=== PATIENT | female | born 1950 | race Caucasian/White ===

== ENCOUNTER → 2017-01-29 | Outpatient (CLI) | payer MEDICARE, BC ==
[~2017-01-29] MED LIST: ACETAMINOPHEN PO; AMARYL PO; ASPIRIN81 MG PO; DIOVAN160 MG DOB; FISH OIL300 MG PO; HYTRIN10 M1 PO; LANTUS100 U/M1 SUBQ; LASIX20 MG PO; MELOXICAM15 MG PO; MULTI VITAMIN1 EACH PO; PLAVIX PO; SIMVASTATIN80 MG PO; SYNTHROID0.05 MG PO
--- NOTE | ~2017-01-29 | CT17 ---
[facility] A Service of [facility] & [facility] RADIOLOGY TEXT RESULTS PATIENT: FRANK BENAVIDES LOCATION: [facility] : 48 UNIT #: [id number] AGE: [address]: Leo So II, MD SEX: F ORDER DR: [id number] [place], [place] [address] [id number] O MR#: [id number] Acc #: [id number] NAME: FRANK BENAVIDES : 1950 SEX: F STUDY DATE/TIME: 01/29/2017 11:40 UNIT: [facility] ROOM: STUDY DESCRIPTION: CT Angio Head Attending Physician: Leo So II., M.D. Referring Physician: Leo So II., M.D. Ordering Physician: Leo So II., M.D. Primary Care Physician: Peter Gomez M.D. MEDICAL IMAGING REPORT This report is preliminary unless electronic signature is present EXAM CT angiogram of the head HISTORY FINDINGS Please see CT angiogram of the neck for results. Dictated by... Olya Fraire M.D. THIS IS AN ELECTRONICALLY VERIFIED REPORT Olya Fraire M.D. at 01/31/2017 3:21 PM CPR/sierra TD: 01/31/2017 15:01 JOB #: [id number] MEDICAL IMAGING REPORT Page 1 of 1 COPY
--- NOTE | ~2017-01-29 | CT23 ---
[facility] A Service of [facility] RADIOLOGY TEXT RESULTS PATIENT: FRANK BENAVIDES LOCATION: [facility] : 48 UNIT #: [id number] AGE: [address]: Leo So II, MD SEX: F ORDER DR: [id number] [facility] [address] [place], [place] [address] [id number] O MR#: [id number] [facility] #: [id number] NAME: FRANK BENAVIDES : 1950 SEX: F STUDY DATE/TIME: 01/29/2017 11:40 UNIT: [facility] ROOM: STUDY DESCRIPTION: CT Angio Neck Attending Physician: Leo So II., M.D. Referring Physician: Leo So II., M.D. Ordering Physician: Leo So II., M.D. Primary Care Physician: Peter Gomez M.D. MEDICAL IMAGING REPORT This report is preliminary unless electronic signature is present EXAM CT angiogram of the head and neck with contrast dated 01/29/2017 COMPARISON MRA head without contrast dated 11/21/2015, MRA head and neck dated 09/08/2013, CTA head and neck dated 02/10/2013. HISTORY Cerebral aneurysm was diagnosed in 02/09/2013. Followup. TECHNIQUE This CT exam was performed with one or more of the following radiation dose reduction techniques: automatic exposure control, adjustment of mA and/or kV according to patient size, and iterative reconstruction. FINDINGS CT angiogram of the head was obtained with IV contrast in the axial plane. 3 plane reformats of the [place], curved reformats of the major neck arteries were obtained. In a separate workstation 3-D tumbling MIP images of the [place] and surface rendered images were obtained. NECK: Three-vessel aortic arch is seen. Atherosclerotic plaques are noted at the origin of the great vessels. Bilateral common carotid arteries demonstrate calcified plaques at the distal bifurcation with extension into the internal carotid artery on the left side. There is a higher bifurcation on the left when compared to the right. A congenital variant. No hemodynamically flow-limiting significant stenosis in bilateral internal carotid artery bulbs per NASCET criteria. Mild atherosclerotic plaques are noted in the origin of bilateral external carotid arteries without any significant stenosis or distal flow limitation. The right vertebral artery is dominant, it is slightly larger when compared to the left. Bilateral vertebral arteries demonstrate expected course, caliber and flow. No dissection, aneurysm or AVM is seen. [facility] A Service of [facility] RADIOLOGY TEXT RESULTS PATIENT: FRANK BENAVIDES LOCATION: [facility] : 48 UNIT #: [id number] AGE: [address]: Leo So II, MD SEX: F ORDER DR: HEAD: Bilateral intracranial internal carotid arteries, anterior cerebral arteries and middle cerebral arteries demonstrate atherosclerotic plaques in bilateral cavernous ICA. Mild narrowing cannot be excluded but there is no significant flow limitation. Bilateral CHERIE and MCA are unremarkable. It is difficult to visualize the ectasia mentioned in the MRA head from 11/21/[address] head where vessels adjacent to the bones are difficult to characterize. Bilateral anterior and middle cerebral arteries are within normal limits. Redemonstrated is the saccular aneurysm in the right posterior cerebral artery at the presumed P3 segment measuring 5.0 x 5.5 mm, relatively stable given differences in slice selection. Basilar artery, left posterior cerebral artery, bilateral proximal visualized superior cerebellar arteries are within normal limits. There is decrease in caliber of bilateral vertebral arteries as they extend towards the vertebrobasilar junction. It appears to be smooth without any atherosclerotic associated plaques. This could be a congenital appearance of bilateral vertebral arteries. Dural venous sinuses do not demonstrate any significant new abnormality. There is a short segment of decreased flow in the right transverse sinus along its medial and lateral aspects with a relatively normal sized portion in the mid right transverse sinus. Right internal jugular vein and right sigmoid sinus are slightly smaller when compared to the left. EXTRAVASCULAR SOFT TISSUES: There is a large hypodense lesion noted in the region of the right basal ganglia, right thalamus extending to the right cerebral peduncle and adjacent mid brain. It is stable when compared with the previous study from 4 years ago. It is noted adjacent to the right PC aneurysm. No hydrocephalus or midline shift is seen. IMPRESSION 1. No hemodynamically flow-limiting significant stenosis in bilateral internal carotid artery bulbs per NASCET criteria. 2. 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 Stable. 3. There is a hypodense large stable lesion noted in the right basal ganglia, right thalamus and extending to the right cerebral peduncle and adjacent mid brain. It has some cystic components without any significant mass effect. It is unclear if it is cystic encephalomalacia change or a cystic tumor. It is however, stable in the last 4 years favoring benignity. Correlate with history. Dictated by... Olya Fraire M.D. THIS IS AN ELECTRONICALLY VERIFIED REPORT Olya Fraire M.D. at 01/31/2017 3:20 PM CPR/jw STS. [facility] A Service of [facility] RADIOLOGY TEXT RESULTS PATIENT: FRANK BENAVIDES LOCATION: [facility] : 48 UNIT #: [id number] AGE: [address]: Leo So II, MD SEX: F ORDER DR: TD: 01/31/2017 15:00 JOB #: [id number] MEDICAL IMAGING REPORT Page 1 of 1 COPY
[2017-01-29 13:56] LABS: POC - CREATININE 1.16 mg/dL (0.44-1.03)
== END | disposition home or self-care (01) ==
LOC: CCAT 09:06
PROVIDERS: Psychiatry & Neurology Neurology
DX: I67.1 Cerebral aneurysm, nonruptured (principal); G93.89 Other specified disorders of brain
CPT/HCPCS: 70496; 70498; 82565; 82947; 96360; 96361; Q9967